=== PATIENT | female | born 1990 | race Caucasian/White ===

== ENCOUNTER 2021-12-18 19:04 | Emergency (ER) | payer OTHER, SELFPAY ==
--- NOTE | ~2021-12-18 | XR_ITS ---
EXAM: XR shoulder LT min 2V DATE: 12/18/2021 19:54 HISTORY: FELL AT WORK, PAIN THROUGHOUT L SHOULDER DOWN ARM . COMPARISON: None available. FINDINGS: Normal mineralization. Anterior and inferior dislocation of the humeral head. Possible cor tical irregularity of the humeral head suggested in the scapular Y view. No lytic or blastic lesion. No erosion or periosteal change. Soft tissues within normal limits. IMPRESSION: Anterior left shoulder dislocation. Possible Hill-Sachs deformity. Reviewed, dictated and finalized at location K.
--- NOTE | ~2021-12-18 | XR_ITS ---
EXAM: XR shoulder LT min 2V DATE: 12/18/2021 21:28 HISTORY: REDUCTION . COMPARISON: Same date, 7:44 PM. FINDINGS: Interval reduction of the glenohumeral joint into anatomic alignment. No definite fracture . IMPRESSION: Successful left shoulder reduction. Reviewed, dictated and finalized at location K.
[2021-12-18 19:12] VITALS: BP 142/92; PULSE 97; RESP 12; TEMP 35.8; O2SAT 100
--- NOTE | 2021-12-18 19:34 | ED.UPPEXIN ---
HPI - Extremity Injury (Upper) General Chief Complaint: Extremity Injury, Upper Stated Complaint: fall at work and injured left arm. Time Seen by Provider: 12/18/21 19:18 Source: patient History of Present Illness HPI narrative: Patient is a 31-year-old female complaining of left shoulder pain, 8 out of 10, aching, worse with movement after she fell at work landing on her left side. 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 Patient denies any head, neck, chest, abdomen, back, pelvis, hip or any other extremity pain/injury. Patient denies any symptoms prior to the fall. Patient states that she was able to stand up and ambulate after the fall. Related Data Allergies Allergy/AdvReac Type Severity Reaction Status Date / Time Iodine and Iodide Containing Allergy Other Verified 12/18/21 19:05 Produc Review of Systems Review of Systems: Per HPI All systems reviewed & are unremarkable except as noted in HPI and below Constitutional: Constitutional: Denies body ache(s), Denies chills, Denies excessive sweating, Denies fatigue, Denies fever(s), Denies headache(s), Denies lethargy, Denies malaise, Denies weakness and Denies weight loss Eyes: Eyes: Denies blurry vision, Denies change in vision and Denies loss of vision ENT: Denies dizziness, Denies ear discharge, Denies headache(s), Denies lip swelling, Denies epistaxis, Denies nasal congestion, Denies neck pain, Denies throat swelling and Denies tongue swelling Cardiovascular: Cardiovascular: Denies chest pain, Denies chest pain at rest, Denies chest pain with activity, Denies diaphoresis, Denies rapid heart rate, Denies edema, Denies irregular heart rhythm, Denies lightheadedness, Denies palpitations, Denies dyspnea and Denies dyspnea on exertion Respiratory: Respiratory: Denies chest congestion, Denies cough, Denies hemoptysis, Denies dyspnea and Denies dyspnea on exertion Gastrointestinal: Gastrointestinal: Denies abdominal pain, Denies melena, Denies hematochezia, Denies diarrhea, Denies nausea, Denies vomiting and Denies hematemesis Musculoskeletal: Musculoskeletal: Denies abnormal gait, Denies deformity, Denies joint swelling, Denies limited range of motion, Denies neck pain and Denies numbness Neurologic: Denies Abnormal speech present, Denies abnormal gait, Denies confusion, Denies dizziness, Denies headache(s), Denies focal weakness, Denies loss of vision, Denies numbness, Denies Other visual disturbances, Denies Sensory deficit (Neuro) and Denies weakness Psychiatric: Psychiatric: Denies confusion, Denies depression, Denies auditory hallucinations, Denies homicidal ideation and Denies suicidal ideation Endocrine: Endocrine: Denies cold intolerance, Denies excessive sweating, Denies fatigue, Denies heat intolerance and Denies palpitations Hematologic/Lymphatic: Hematologic/Lymphatic: Denies easy bleeding and Denies easy bruising Allergic/Immunologic: Allergic/Immunologic: Denies lip swelling, Denies throat swelling and Denies tongue swelling PMFSH Comments Past medical history: None Family history: Hypertension Social history: Positive for smoker, no EtOH or drug use Exam Const: General: cooperative, healthy appearing, comfortable, no acute distress, well developed, alert and awake; No confusion Nutritional Appearance: obese Orientation/consciousness: oriented to person, oriented to place, oriented to time, patient oriented x3 and No confusion Limitations: no limitations HENMT: Head: normal to inspection, normocephalic and atraumatic Ears: hearing grossly normal bilaterally, TM normal on the right and TM normal on the left General nose exam: Normal external nose present, Normal nares present and No nasal discharge present Face and sinus: normal facial exam Mouth: Yes Normal oral and palatal mucosa present, Yes lip normal, Yes tongue normal and Yes oropharynx normal Throat: posterior or
[2021-12-18] MEDS: diazePAM INJ (*CRX) 10 MG/2 ML SYRINGE 5 MG IM (20:21)
[2021-12-18] MEDS: HYDROcodone/acetaminophen (*CRX) 5-325 MG TABLET 1 TAB PO (20:21)
[2021-12-18] MEDS: KETOROLAC 30 MG/ML VIAL (*BKC) IM (20:21)
--- NOTE | 2021-12-18 20:22 | PC.NURSE ---
RN clarified dosage and medications with ERP
[2021-12-18 20:28] VITALS: BP 145/94
[2021-12-18 20:31] VITALS: BP 150/96; PULSE 103; RESP 18; O2SAT 98
--- NOTE | 2021-12-18 21:00 | PC.NURSE ---
ERP to set pts shoulder. Family to waiting room. Pt tolerated well. Pt now resting on stretcher with no complaints. PMI intact distally. Waiting repeat x ray.
[2021-12-18 21:53] VITALS: PULSE 110; RESP 16; O2SAT 98
== END 2021-12-18 22:05 | disposition home or self-care (01) ==
PROVIDERS: Emergency Provider Emergency Medicine; PCP Nurse Practitioner Family
DX: S43.015A Anterior dislocation of left humerus, initial encounter (principal); F17.200 Nicotine dependence, unspecified, uncomplicated; W18.09XA Striking against other object with subsequent fall, initial encounter
CPT/HCPCS: 23650; 73030; 96372; 99285; A4565; A9270; J1885; J3360

== ENCOUNTER → 2022-01-11 13:33 | Outpatient (CLI) | payer OTHER, SELFPAY ==
--- NOTE | ~2022-01-11 | MR_ITS ---
EXAMINATION: MR shoulder LT wo con DATE: 01/11/2022 14:19 INDICATION: Left shoulder pain TECHNIQUE: Magnetic resonance imaging (MRI) of the left shoulder was performed without intravenous co ntrast. Sequences included axial PD-weighted FS FSE, coronal oblique PD-weighted FS FSE, coronal obli que T2-weighted FS FSE, sagittal PD-weighted FS FSE, and sagittal T1-weighted SE. COMPARISON: None. FINDINGS: Coracoacromial arch: The acromion undersurface is curved in morphology (type II). The coracoacromial ligament is normal. A cromioclavicular joint is normal. Rotator cuff: The supraspinatus, infraspinatus and teres minor tendons are normal. The subscapularis tendon is norm al. Normal rotator cuff muscle bulk and signal. Biceps tendon, glenoid labrum and glenohumeral cartilage: Long head of the biceps tendon is normal. Tear of the 6:00 to 3:00 position of the anteroinferior gle noid labrum. There appears to be some subtle abnormal angulation to the articular cortex along the an teroinferior rim of the glenoid with advanced suggesting an a mildly impacted osseous Bankart fractur e. Focal thickening and increased signal of the cartilage overlying the anteroinferior rim of the gle noid likely representing an associated chondral injury. Findings are consistent with sequela of an an terior glenohumeral dislocation. Glenohumeral cartilage is otherwise normal. Fluid: Minimal glenohumeral joint effusion with suggestion of a small amount of fluid along the long head bi ceps tendon sheath. No loose osteochondral bodies. Tiny collection of fluid in the subacromial/subdel toid bursa is likely reactive related to the reported recent trauma with differential including mild bursitis. Bones: Bone alignment is normal. Mild marrow edema surrounding a shallow Hill-Sachs fracture trough along th e posterior superior aspect of the humeral head. Otherwise normal marrow signal. No pathologic marrow replacing process. IMPRESSION: 1. Constellation of findings consistent with recent anterior glenohumeral dislocation including a Hil l-Sachs fracture trough at the posterior superior humeral head and likely small impacted Bankart frac ture along the anteroinferior rim of the glenoid associated chondral injury and anteroinferior labral tear. Reviewed, dictated and finalized at location A. IMPRESSION: 1. Constellation of findings consistent with recent anterior glenohumeral dislo cation including a Hill-Sachs fracture trough at the posterior superior humeral head and likely small impacted Bankart fracture along the anteroinferior rim o f the glenoid associated chondral injury and anteroinferior labral tear.
== END ==
PROVIDERS: PCP Nurse Practitioner Family; Visit Provider Orthopaedic Surgery
DX: M25.512 Pain in left shoulder (principal); S42.292A Other displaced fracture of upper end of left humerus, initial encounter for closed fracture
CPT/HCPCS: 73221

== ENCOUNTER 2022-05-22 12:31 | Outpatient (CLI) | payer OTHER, SELFPAY ==
--- NOTE | 2022-05-22 12:30 | ECG_ITS ---
Measurements Intervals [place] Rate: 108 P: 16 TX: 132 QRS: 24 QRSD: 96 T: 16 QT: 328 QTc: 440 Interpretive Statements SINUS TACHYCARDIA NO PREVIOUS ECG AVAILABLE FOR COMPARISON Electronically Signed On 05-22-2022 13:19:25 CDT by Jaziel Hargrove M.D.
[2022-05-22 13:19] LABS: Anion Gap 19 mmol/L (8-16); Blood Urea Nitrogen 23 mg/dL (7-17); Calcium 8.7 mg/dL (8.4-10.2); Carbon Dioxide 18 mmol/L (22-30); Chloride 100 mmol/L (98-107); Estimated Glomerular Filt Rate > 60; Glucose 290 mg/dL (65-110); Potassium 4.6 mmol/L (3.4-5.0); Sodium 137 mmol/L (137-145)
== END 2022-05-22 12:32 | disposition home or self-care (01) ==
LOC: ANHSURGERY 12:37
PROVIDERS: Anesthesiology; PCP Nurse Practitioner Family; Visit Provider Orthopaedic Surgery
DX: E11.9 Type 2 diabetes mellitus without complications (principal); I10 Essential (primary) hypertension; Z01.818 Encounter for other preprocedural examination; R00.0 Tachycardia, unspecified
CPT/HCPCS: 36415; 80048; 93005

== ENCOUNTER 2022-05-24 02:15 | Day surgery (SDC) | payer OTHER, SELFPAY ==
--- NOTE | 2022-05-21 09:06 | PC.NURSE ---
Report to the Outpatient Waiting Room, entrance under the green pavilion located off [facility], at time _0600 on date _05/24/22 . Planned Procedure Time: 729 . Time changes happen often and if your time is changed the preop area will call you the afternoon before. - You and your visitor will be asked to self-screen and do not enter if you have any COVID symptoms. - We encourage only one visitor and NO visitors under age 16 are allowed at this time. Your visitor will receive communication by the phone number that is given day of service. - The patient visitor is requested to social distance or may leave the building when not with patient due to restrictions. - A mask is required within the hospital. Patients may have clear liquids (water, carbonated beverages, clear teas, apple juice) until 3 hours prior to surgery with a maximum of 20 ounces. - No food from midnight until time of surgery - Infants may have breast milk until 4 hours before surgery, formula 6 hours prior to surgery. - Children will be allowed to drink immediately following surgery. If applicable, please bring a bottle or sippy cup to assist with drinking. Juice, water, soda, and popsicles are readily available. For infants on formula, please bring formula the day of surgery. Pacifiers are allowed. Take the following medications with a SIP of water the morning of surgery: __LEVOTHYROXINE Medications to discontinue per physician ALL VITAMINS 3 DAYS PRE OP Date to take last dose_05/20/22 Please no make-up, nail hungarian, hairspray, perfume, deodorant, or body powder the day of surgery. No jewelry (including any body piercings) or valuables the day of surgery, leave them at home. Please take a shower or bath the night before, or the morning of, surgery with an antibacterial soap. Wear comfortable, loose fitting clothing. Children are encouraged to wear pajamas. - Jewelry must be removed prior to entering the operating room. Rings and piercings that are not removed may be cut off. - The hospital will not accept responsibility for valuables. - Please leave all valuables, including medications, at home the day of surgery. If you are going home after surgery, a licensed cdl dedicated truck driver must drive you home. - NO public transportation without another adult. - We recommend that an adult stay with you for 24 hours following discharge. - We also recommend that you do not drive, make important decision, drink alcoholic beverages, or take any drugs that were not prescribed by your health care provider for at least 24 hours after your discharge time. For Pediatric surgeries, we recommend two adults accompany the child home. Follow any additional instructions given to you from your surgeon. If you or anyone in your household have experienced Covid symptoms in the past week, please notify your surgeon or the nurse liaison at the phone number below for possible testing. Telephone instructions given to __PATIENT and asked if any additional questions and then verbalized understanding. Patient advised to call surgeon office or pre surgery nurse liaison [phone] if any additional questions.
[2022-05-21 09:13] VITALS: BMI 33.2
--- NOTE | 2022-05-23 14:32 | WPDANESEPPF ---
Anes - Initial Pre Proc Eval Procedure: Operation Date: 05/24/22 07:30 Proposed Procedures p Left Shoulder Manipulation under Anesthesia - Christoph Nuno MD Date/Time: 05/23/22 14:32 Surgeon: Christoph Nuno MD Pre Op Diagnosis: Adhesive Capusilits Left Shoulder Patient Data Age: 32 Gender: F Height: 1.52 m Weight: 77.2 kg Allergies Allergy/AdvReac Type Severity Reaction Status Date / Time bee venom protein (honey bee) Allergy Severe Anaphylactic Verified 05/24/22 06:30 Shock Fish Containing Products Allergy Severe Anaphylactic Verified 05/24/22 06:30 Shock Iodine and Iodide Containing Allergy Severe Anaphylactic Verified 05/24/22 06:30 Produc Shock mint Allergy Rash Verified 05/24/22 06:30 Home Medications Medication Instructions Recorded Confirmed Type atorvastatin 40 mg tablet 40 mg PO DAILY 05/21/22 05/24/22 History cetirizine 10 mg tablet 10 mg PO DAILY 05/21/22 05/24/22 History cholecalciferol (vitamin D3) 25 25 mcg PO DAILY 05/21/22 05/24/22 History mcg (1,000 unit) tablet insulin detemir U-100 100 unit/mL 20 unit subcut QAM 05/21/22 05/24/22 History (3 mL) subcutaneous pen (Levemir FlexTouch U-100 Insulin) insulin detemir U-100 100 unit/mL 60 unit subcut HS 05/21/22 05/24/22 History (3 mL) subcutaneous pen (Levemir FlexTouch U-100 Insulin) insulin lispro 100 unit/mL 60 unit subcut BID 05/21/22 05/24/22 History subcutaneous solution (Admelog U-100 Insulin lispro) levothyroxine 75 mcg tablet 75 mcg PO DAILY 05/21/22 05/24/22 History (Euthyrox) lisinopril 5 mg tablet 5 mg PO DAILY 05/21/22 05/24/22 History triamterene 100 mg capsule 100 mg PO BID 05/21/22 05/24/22 History hydrocodone 5 mg-acetaminophen 325 1 tablet PO DAILY PRN pain #20 tabs 05/24/22 Rx mg tablet Patient hx anesthesia problems: none Family hx anesthesia problems: none Results Review: All pre-operative results and documents have been reviewed as part of the pre-operative evaluation. 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 Informed Consent: The patient's anesthetic plan and its attendant risks and benefits were discussed with the patient/family/POA. Questions were solicited and answers provided to the satisfaction of the patient/family/POA.
[2022-05-24] VITALS (8 sets, daily range): BP systolic 148–168; BP diastolic 89–110; PULSE 99–119; RESP 16–22; TEMP 36.5–37.2; O2SAT 94–100
[2022-05-24] MEDS: ACETAMINOPHEN 500 MG TABLET 1000 MG PO (06:53)
[2022-05-24] MEDS: CELECOXIB 200 MG CAPSULE PO (06:53)
[2022-05-24] MEDS: LACTATED RINGERS 1,000 ML 30 ML IV CONT (07:11)
[2022-05-24 07:12] LABS: Glucose Point of Care 204 mg/dl (65-105)
--- NOTE | 2022-05-24 07:15 | WPDHPUPDATE1 ---
History and Physical Update Update Date/Time: 05/24/22 07:15 History and Physical has been reviewed, including an updated exam of the patient. There are NO changes in the patient's condition. Risks, benefits, and alternatives have been discussed and questions answered. Patient agrees to proceed with procedure.
--- NOTE | 2022-05-24 07:24 | PM.CNOR ---
Assessment and Plan Assessment and plan (1) Adhesive capsulitis of left shoulder: Code(s): M75.02 - Adhesive capsulitis of left shoulder Status: Acute Assessment and Plan: LEFT SHOULDER ADHESIVE CAPSULITIS WITH PAIN AND STIFFNESS. RECOMMEND LEFT SHOULDER MANIPULATION UNDER ANESTHESIA WITH INJECTION. DISCUSSED NONOPERATIVE AND OPERATIVE TREATMENT OPTIONS WITH THE PATIENT. THE PATIENT'S QUESTIONS WERE ANSWERED. THE PATIENT DESIRES OPERATIVE TREATMENT. DISCUSSED ____LEFT SHOULDER AVINASH WITH INJECTION . RISKS OF SURGERY INCLUDING BUT NOT LIMITED TO NEUROVASCULAR DAMAGE, WOUND COMPLICATIONS, BLOOD CLOT, PULMONARY EMBOLUS, STROKE, [place], ANESTHETIC RISKS UP TO AND INCLUDING WERE REVIEWED. CONTINUED PAIN AND POSSIBLE DYSFUNCTION WERE EXPLAINED. NO GUARANTEES WERE OFFERED. THE PATIENT UNDERSTANDS AND WISHES TO PROCEED. History of Present Illness HPI Consult date: 05/24/22 Chief complaint: Adhesive Capusilits Left Shoulder Narrative: JAGDISH IS HERE FOR LEFT SHOULDER MANIPULATION AND INJECTION. DUE TO LEFT SHOULDER ADHESIVE CAPSULITIS. HISTORY, EXAM AND RADIOGRAPHS REVIEWED WITH THE PATIENT. REFERRING PHYSICIAN RECORDS AND IMAGES REVIEWED. CONDITION, NATURE, ETIOLOGY AND COURSE OF NATURAL HISTORY REVIEWED. CONSERVATIVE AND OPERATIVE TREATMENT OPTIONS REVIEWED WELL THE RISKS AND BENEFITS OF EACH. Review of Systems Review of Systems: All systems reviewed & are unremarkable except as noted in HPI and below Musculoskeletal: Musculoskeletal: Reports no additional musculoskeletal complaints Neurologic: Reports system reviewed and no additional complaints, except as documented PMFSH Past Medical History Medical History Diabetes mellitus Dislocation of left shoulder joint HTN (hypertension) Hyperlipidemia Obesity Superior labrum pjarkdaw-qi-cmrtaqsus (SLAP) tear of left shoulder Social History Social History Smoking status: Never smoker Alcohol intake: never Substance use: never Living arrangements: with family 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 Gender identity (if verbalized by the patient): Female Spiritual care concerns: No Meds Home Medications and Allergies Home Medications Medication Instructions Recorded Confirmed Type atorvastatin 40 mg tablet 40 mg PO DAILY 05/21/22 05/24/22 History cetirizine 10 mg tablet 10 mg PO DAILY 05/21/22 05/24/22 History cholecalciferol (vitamin D3) 25 25 mcg PO DAILY 05/21/22 05/24/22 History mcg (1,000 unit) tablet insulin detemir U-100 100 unit/mL 20 unit subcut QAM 05/21/22 05/24/22 History (3 mL) subcutaneous pen (Levemir FlexTouch U-100 Insulin) insulin detemir U-100 100 unit/mL 60 unit subcut HS 05/21/22 05/24/22 History (3 mL) subcutaneous pen (Levemir FlexTouch U-100 Insulin) insulin lispro 100 unit/mL 60 unit subcut BID 05/21/22 05/24/22 History subcutaneous solution (Admelog U-100 Insulin lispro) levothyroxine 75 mcg tablet 75 mcg PO DAILY 05/21/22 05/24/22 History (Euthyrox) lisinopril 5 mg tablet 5 mg PO DAILY 05/21/22 05/24/22 History triamterene 100 mg capsule 100 mg PO BID 05/21/22 05/24/22 History Allergies Allergy/AdvReac Type Severity Reaction Status Date / Time bee venom protein (honey bee) Allergy Severe Anaphylactic Verified 05/24/22 06:30 Shock Fish Containing Products Allergy Severe Anaphylactic Verified 05/24/22 06:30 Shock Iodine and Iodide Containing Allergy Severe Anaphylactic Verified 05/24/22 06:30 Produc Shock mint Allergy Rash Verified 05/24/22 06:30 Vital Signs Vital Signs - 24 hr 05/24/22 07:16 Temperature 36.5 C Pulse Rate 99 Respiratory Rate 16 Blood Pressure 148/96 H Pulse Oximetry 100 Oxygen Delivery Room Air Exam Const: General: cooperative, healthy appearing and comfortable HENMT: Head: normal to inspection E
[2022-05-24] MEDS: methylPREDNISolone ACETATE 80 MG/ML VIAL IM (07:45)
[2022-05-24] MEDS: BUPIVACAINE HCL 0.5% PF 30 ML VIAL 5 ML INFILTRATE (07:46)
--- NOTE | 2022-05-24 08:00 | W.PM.PROC2 ---
Procedure Note - Detailed Date of Procedure 05/24/22 Pre-op Diagnosis Adhesive Capusilits Left Shoulder Post-op Diagnosis Same Procedure Performed MANIPULATION UNDER ANESTHESIA LEFT SHOULDER WITH INJECTION Surgeon Christoph Nuno MD Indications FROZEN SHOULDER Description of Procedure THE PATIENT WAS TAKEN TO THE OPERATING ROOM AND INTUBATED THE CHEMICALLY PARALYZED. THE LEFT SHOULDER WAS MANIPULATED. AUDIBLE ADHESIOLYSIS WAS OBSERVED. THE SHOULDER HAD FULL PASSIVE MOTION IN ALL PLANES. THE SHOULDER WAS PREPPED THEN INJECTED WITH DEPO MEDROL 80 MG 1 CC AND MARCAINE 0.5% 4 CC. THE PATIENT'S ANESTHESIA WAS REVERSED AND WAS EXTUBATED AND SENT TO RECOVERY ROOM IN STABLE CONDITION. Estimated Blood Loss 0 Complications No immediate complications Disposition PACU
[2022-05-24 08:14] LABS: Glucose Point of Care 242 mg/dl (65-105)
[2022-05-24] MEDS: fentaNYL CITRATE INJ (*CRX) 100 MCG/2 ML VIAL 25 MCG IV PUSH ×6 (08:14→08:40)
--- NOTE | 2022-05-24 08:25 | SUR.PHASEI ---
0825 - dr. miranda aware of accucheck of 242. no orders received
[2022-05-24] MEDS: oxyCODONE HCL (*CRX) 5 MG TAB IR PO (09:21)
== END 2022-05-24 09:56 | disposition home or self-care (01) ==
PROVIDERS: PCP Nurse Practitioner Family; Visit Provider Orthopaedic Surgery
PROC: (CPT 23700; principal; 2022-05-24 07:30)
DX: M75.02 Adhesive capsulitis of left shoulder (principal); E11.9 Type 2 diabetes mellitus without complications; I10 Essential (primary) hypertension; E78.5 Hyperlipidemia, unspecified; E66.9 Obesity, unspecified; Z68.39 Body mass index [BMI] 39.0-39.9, adult; Z79.4 Long term (current) use of insulin
CPT/HCPCS: 23700; 82948; A9270; J0330; J1040; J2250; J2704; J3010; J7120

== ENCOUNTER 2023-04-03 14:25 | Emergency (ER) | payer OTHER, SELFPAY ==
[2023-04-03 14:32] VITALS: BP 127/74; PULSE 106; RESP 16; TEMP 36.4; O2SAT 99
--- NOTE | 2023-04-03 14:46 | ED.URI ---
HPI - URI/Sore Throat General Chief Complaint: Upper Respiratory Infection Stated Complaint: Sore Throat/Fever/Headache Source: patient and RN notes reviewed History of Present Illness HPI Narrative: 33 yo F presents to urgent care with complaints of sore throat, GUTIERREZ, and a fever yesterday. Pt reports a dry cough and a little diarrhea. Pt denies any vomiting, chest pain, SOB, or abdominal pain. Pt has taken Tylenol at home. Related Data Home Medications Medication Instructions Recorded Confirmed atorvastatin 40 mg tablet 40 mg PO DAILY 05/21/22 10/31/22 cetirizine 10 mg tablet 10 mg PO DAILY 05/21/22 10/31/22 cholecalciferol (vitamin D3) 25 25 mcg PO DAILY 05/21/22 10/31/22 mcg (1,000 unit) tablet insulin detemir U-100 100 unit/mL 20 unit subcut QAM 05/21/22 10/31/22 (3 mL) subcutaneous pen (Levemir FlexTouch U-100 Insulin) insulin detemir U-100 100 unit/mL 60 unit subcut HS 05/21/22 10/31/22 (3 mL) subcutaneous pen (Levemir FlexTouch U-100 Insulin) insulin lispro 100 unit/mL 60 unit subcut BID 05/21/22 10/31/22 subcutaneous solution (Admelog U-100 Insulin lispro) levothyroxine 75 mcg tablet 75 mcg PO DAILY 05/21/22 10/31/22 (Euthyrox) lisinopril 5 mg tablet 5 mg PO DAILY 05/21/22 10/31/22 triamterene 100 mg capsule 100 mg PO BID 05/21/22 10/31/22 Allergies Allergy/AdvReac Type Severity Reaction Status Date / Time bee venom protein (honey bee) Allergy Severe Anaphylactic Verified 08/01/22 10:25 Shock Fish Containing Products Allergy Severe Anaphylactic Verified 08/01/22 10:25 Shock Iodine and Iodide Containing Allergy Severe Anaphylactic Verified 08/01/22 10:25 Produc Shock mint Allergy Rash Verified 08/01/22 10:25 Review of Systems Review of Systems: Pertinent positives and pertinent negatives per HPI. 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 There is no relevant family history pertinent to the patient complaint. Exam Narrative: GENERAL: This is a well-nourished, well-developed patient, in no apparent distress. HEAD: normocephalic, atraumatic. EYES: Sclera clear/white. Vision is grossly intact. EARS: External ears normal, auditory canals clear and without drainage, TMs normal without perforation. Hearing grossly intact. NOSE: External nose normal with no obvious nasal discharge, nares without redness, no rhinorrhea. THROAT: Mucous membranes moist, posterior pharynx clear. NECK: Neck supple, non-tender without lymphadenopathy, masses or thyromegaly. CARDIOVASCULAR: Regular rate and rhythm without murmurs, gallops, or rubs. RESPIRATORY: Clear to auscultation. Breath sounds equal bilaterally. No wheezes, rales, or rhonchi. GASTROINTESTINAL: Abdomen soft, non-tender, nondistended. Bowel sounds are active. No hepato-splenomegaly, or palpable masses. No guarding. SKIN: warm, intact with no suspicious lesions or rash, good texture and turgor. NEURO: awake, alert, and oriented to person, place and time. There were no obvious focal neurologic abnormalities. EXTREMITIES: No clubbing, cyanosis, or edema. No joint tenderness, effusion, or edema noted. BACK: Nontender without deformity or crepitus. No flank tenderness. Course Course Level of Care: Express Care Vis
== END 2023-04-03 15:16 | disposition home or self-care (01) ==
PROVIDERS: Emergency Provider Nurse Practitioner Family; PCP Nurse Practitioner Family
DX: B34.9 Viral infection, unspecified (principal); E11.9 Type 2 diabetes mellitus without complications; Z79.4 Long term (current) use of insulin; I10 Essential (primary) hypertension; E78.5 Hyperlipidemia, unspecified; E66.9 Obesity, unspecified; Z68.31 Body mass index [BMI] 31.0-31.9, adult
CPT/HCPCS: 87081; 87426; 87880; 99213; C9803; G0463

== ENCOUNTER 2024-07-02 10:58 | Emergency (ER) | payer OTHER, SELFPAY ==
[2024-07-02 11:08] VITALS: BP 139/88; PULSE 123; RESP 18; TEMP 36.6; O2SAT 99
--- NOTE | 2024-07-02 11:38 | ED_ITS ---
HPI - URI/Sore Throat General Chief Complaint: Upper Respiratory Infection Stated Complaint: nose/fever/throat/cough Time Seen by Provider: 07/02/24 11:38 Source: patient and RN notes reviewed Mode of arrival: ambulatory Limitations: no limitations History of Present Illness HPI Narrative: 34-year-old female presents with concern for runny nose, fever, sore throat, cough for 3 days. She has history of diabetes. Reports she has been taking DayQuil. MD elicited complaint: cough and sore throat Related Data Home Medications Medication Instructions Recorded Confirmed atorvastatin 40 mg tablet 40 mg PO DAILY 05/21/22 10/31/22 cetirizine 10 mg tablet 10 mg PO DAILY 05/21/22 10/31/22 cholecalciferol (vitamin D3) 25 25 mcg PO DAILY 05/21/22 10/31/22 mcg (1,000 unit) tablet insulin detemir U-100 100 unit/mL 20 unit subcut QAM 05/21/22 10/31/22 (3 mL) subcutaneous pen (Levemir FlexTouch U-100 Insulin) insulin detemir U-100 100 unit/mL 60 unit subcut HS 05/21/22 10/31/22 (3 mL) subcutaneous pen (Levemir FlexTouch U-100 Insulin) insulin lispro 100 unit/mL 60 unit subcut BID 05/21/22 10/31/22 subcutaneous solution (Admelog U-100 Insulin lispro) levothyroxine 75 mcg tablet 75 mcg PO DAILY 05/21/22 10/31/22 (Euthyrox) lisinopril 5 mg tablet 5 mg PO DAILY 05/21/22 10/31/22 triamterene 100 mg capsule 100 mg PO BID 05/21/22 10/31/22 Allergies Allergy/AdvReac Type Severity Reaction Status Date / Time bee venom protein (honey bee) Allergy Severe Anaphylactic Verified 08/01/22 10:25 Shock Fish Containing Products Allergy Severe Anaphylactic Verified 08/01/22 10:25 Shock Iodine and Iodide Containing Allergy Severe Anaphylactic Verified 08/01/22 10:25 Produc Shock mint Allergy Rash Verified 08/01/22 10:25 Review of Systems Review of Systems: CONSTITUTIONAL: Reports malaise, fever. EYES: Denies visual changes, redness, or discharge. ENT: Reports rhinorrhea, congestion, and sore throat. CARDIOVASCULAR: Denies chest pain, palpitations, or edema. RESPIRATORY: Reports cough. Denies dyspnea. GASTROINTESTINAL: Denies abdominal pain, nausea, vomiting, diarrhea SKIN: Denies rash or itching. MUSCULOSKELETAL: Denies myalgia. NEUROLOGIC: Denies headache. 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 There is no relevant family history pertinent to the presenting complaint Exam Narrative: GENERAL: Well-appearing, well-nourished, and in no acute distress. HEAD: Normocephalic EYES: PERRLA, conjunctivae clear ENT: Nares clear, turbinates edematous and erythematous, clear discharge. Mucous membranes moist. TM pearly cotton with dull light reflex bilaterally; no tragal tenderness. Oropharynx not erythematous without lesions. Tonsils not enlarged and without exudate, no drooling, no hoarseness, no trismus, uvula midline. NECK: Supple. No lymphadenopathy CHEST: Clear to auscultation, breath sounds equal. No wheezing, rhonchi, rales, or stridor. No respiratory distress, speaks in full sentences. HEART: Regular rate and rhythm. No murmur heard. SKIN: Warm, dry, no rash. NEURO: Alert and oriented x3. PSYCH: Normal mood and affect Course Course Emergency Course: Patient is aware of diagnosis, understands and agrees to treatment plan. Anticipatory guidance given. Patient agrees to follow-up as directed and is aware of reasons to seek care at the emergency department. Portions of this record may have been created with voice recognition software Level of Care: Express Care Visit Vital Signs Vital signs: Vital Signs Temperature 97.9 F 07/02/24 11:08 Pulse Rate 123 H 07/02/24 11:08 Respiratory Rate 18 07/02/24 11:08 Blood Pressure 139/88 07/02/24 11:08 Pulse Oximetry 99 07/02/24 11:08 Oxygen Delivery Room Air 07/02/24 11:08 Temperature 97.9 F 07/02/24 11:08 Pulse Rate 123 H 07/02/24 11:08 Respiratory Rate 18 07/02/24 11:08 Blood Pressure 139/88 07/02/24 11:08 Pulse Oximetry 99 07/02/24 11:08 Oxygen Delivery Room Air 07/02/24 11:08 Reviewed. MDM - URI/Sore Throat MDM Narrative Medical decision making narrative: Differential diagnosis considered: [place] virus, strep pharyngitis, allergic rhinitis, upper respiratory tract infection, sinusitis, rhinosinusitis, nasopharyngitis. viral pharyngitis, otitis media, otitis externa, pneumonia, bronchitis, viral cough syndrome, viral syndrome, and influenza. Exam findings show no acute concerns or changes; patient is non-toxic appearing and is in no distress. Patient is appropriate for outpatient treatment and follow-up. Lab Data Attestation: I reviewed the patient's lab results. Critical Care Time Critical Care Time Critical Care Time: No Discharge Plan Discharge Clinical Impression: Upper respiratory infection Patient Disposition: Home, Self-Care Condition: Stable Instructions: Upper Respiratory Infection (ED) Additional Instructions: Your rapid COVID and flu tests are negative Viral illness may last between 7-21 days; antibiotics do not cure viral illness and are NOT recommended at this time. Recommend antihistamine such as Benadryl at night time and Zyrtec or Rylee during the day Also, recommend symptomatic treatment includes: rest, fluids, and increase humidity of the air at home. Recommend Acetaminophen as directed on the bottle to reduce fever, pain, headache. Avoid smoking/second-hand smoke. Please schedule a follow-up visit with your personal physician for further evaluation and treatment within 3-5days. If your symptoms persist, change or worsen significantly before you can contact your personal physician then please, without delay, go to the emergency department for further evaluation. Prescriptions: New pseudoephedrine HCl [12 Hour Decongestant] 120 mg tablet extended release 120 mg PO Q12H PRN (Reason: nasal congestion) Qty: 20 0RF dextromethorphan-guaifenesin [Mucinex DM] 60-1,200 mg tablet extended release 12 hr 1 tablet PO Q12H Qty: 12 0RF No Action Levemir FlexTouch U100 Insulin 100 unit/mL (3 mL) insulin pen 20 unit SUBCUT QAM cetirizine 10 mg tablet 10 mg PO DAILY levothyroxine [Euthyrox] 75 mcg tablet 75 mcg PO DAILY triamterene 100 mg capsule 100 mg PO BID lisinopril 5 mg tablet 5 mg PO DAILY insulin lispro [Admelog U-100 Insulin lispro] 100 unit/mL solution 60 unit subcut BID Levemir FlexTouch U100 Insulin 100 unit/mL (3 mL) insulin pen 60 unit SUBCUT HS atorvastatin 40 mg tablet 40 mg PO DAILY cholecalciferol (vitamin D3) 25 mcg (1,000 unit) Tablet 25 mcg PO DAILY Follow-up/Referrals: Mittal,Michelle Escobar APN [Primary Care Provider] - Stand Alone Forms: Work/School Release IP Time of Disposition: 11:46
[2024-07-02 11:43] LABS: EDCOVIDSCREEN Negative (Negative)
[2024-07-02 11:43] LABS: EDINFLUASCREEN Negative (Negative); EDINFLUBSCREEN Negative (Negative)
== END 2024-07-02 12:11 | disposition home or self-care (01) ==
PROVIDERS: Emergency Provider Nurse Practitioner; PCP Nurse Practitioner Family
DX: J06.9 Acute upper respiratory infection, unspecified (principal); Z20.822 Contact with and (suspected) exposure to COVID-19; E11.9 Type 2 diabetes mellitus without complications; Z79.4 Long term (current) use of insulin; I10 Essential (primary) hypertension; E78.5 Hyperlipidemia, unspecified; E66.9 Obesity, unspecified; Z68.31 Body mass index [BMI] 31.0-31.9, adult
CPT/HCPCS: 87426; 87804; 99213; G0463